=== PATIENT | female | born 1990 | race Caucasian/White ===

== ENCOUNTER 2016-03-20 15:09 | Emergency (ER) | payer BC ==
[2016-03-20 15:19] VITALS: BP 121/80
--- NOTE | 2016-03-20 16:06 | UC ---
Knee Pain HPI - HPI Summary HPI Summary: 25 yo female with left calf/posterior thigh and popliteal discomfort for 1 yr pains are short lived no swelling - History of Current Complaint Chief Complaint: UCLowerExtremity Stated Complaint: SPOT ON LEG Time Seen by Provider: 03/20/16 15:26 Hx Obtained From: Patient Hx Last Menstrual Period: 03/16/15 Onset/Duration: Gradual Onset, Lasting Weeks - 1 yr Severity Initially: Mild Severity Currently: None Location Of Injury: NA Pain Intensity: 0 Pain Scale Used: 0-10 Numeric Character: Dull Aggravating Factor(s): Nothing Alleviating Factor(s): Nothing Associated Signs And Symptoms: Negative: Swelling, Redness, Bruising, Fever, Weakness, Numbness, Tingling Able to Bear Weight: Yes - Allergies/Home Medications Allergies/Adverse Reactions: Allergies Allergy/AdvReac Type Severity Reaction Status Date / Time Sulfa Drugs AdvReac Intermediate Vomiting Verified 03/20/16 15:19 Home Medications: Home Medications Ibuprofen TAB* [Advil TAB*] 200 mg PO PRN 03/20/16 [History] Minocycline (NF) 100 mg PO BID 03/20/16 [History Confirmed 03/20/16] Multiple Vitamins W/ Minerals [Multivitamin Adults] 1 tab PO DAILY 03/20/16 [ History Confirmed 03/20/16] busPIRone TAB* [Buspar TAB *] mg PO TID 03/20/16 [History] traZODone TAB* [Desyrel TAB*] 50 mg PO BEDTIME 03/20/16 [History Confirmed 03/20] PMH/Surg Hx/FS Hx/Imm Hx Previously Healthy: Yes Endocrine History Of: Denies: Diabetes, Thyroid Disease, Hyperthyroidism, Hypothyroidism Cardiovascular History Of: Denies: Cardiac Disorders, Hypertension Respiratory History Of: Denies: COPD, Asthma GI/ History Of: Denies: Ulcer Neurological History Of: Denies: TIA, Seizures Psychological History Of: Denies: Anxiety, Depression - Surgical History Surgical History: Yes Surgery Procedure, Year, and Place: Adenoids (1995), wisdom teeth (2010) - Family History Known Family History: Positive: Other - [place] - Social History Alcohol Use: None Substance Use Type: None Smoking Status (MU): Never Smoked Tobacco Review of Systems Constitutional: Negative Skin: Negative Eyes: Negative ENT: Negative Respiratory: Negative Cardiovascular: Negative Gastrointestinal: Negative Genitourinary: Negative Motor: Negative Neurovascular: Negative Musculoskeletal: Myalgia Neurological: Negative Psychological: Negative All Other Systems Reviewed And Are Negative: Yes Physical Exam Triage Information Reviewed: Yes Appearance: Well-Appearing, No Pain Distress, Well-Nourished Vital Signs: Initial Vital Signs Temp 99.2 F 03/20/16 15:14 Pulse 83 03/20/16 15:14 Resp 16 03/20/16 15:14 BP 121/80 03/20/16 15:14 Pulse Ox 100 03/20/16 15:14 Vital Signs Reviewed: Yes Eyes: Positive: Conjunctiva Clear ENT: Positive: Hearing grossly normal. Negative: Nasal congestion, Nasal drainage, Trismus, Muffled/hoarse voice Neck: Positive: Supple Respiratory: Positive: Lungs clear, Normal breath sounds, No respiratory distress, No accessory muscle use Cardiovascular: Positive: RRR, No Murmur. Negative: Tachycardia Abdomen Description: Positive: Nontender, Soft. Negative: CVA Tenderness (R) Bowel Sounds: Positive: Present Musculoskeletal: Positive: ROM Intact, No Edema, Other: - no swelling/redness or warmth, non tender, (-) Lukas's sign Neurological: Positive: Alert Psychological Exam: Normal Skin Exam: Normal Knee Pain Course/Dx - Differential Dx/Diagnosis Provider Diagnoses: intermittent left leg pain of uncertain cause Discharge - Discharge Plan Condition: Stable Disposition: HOME Patient Education Materials: Leg Pain (ED) Referrals: Bethany Kelly MD [Primary Care Provider] - 1 Week Additional Instructions: I am unsure of the cause of your pain I find nothing to suggest a blood clot in your leg see your MD in follow up
== END 2016-03-20 16:05 | disposition home or self-care (01) ==
LOC: UCEAST 15:09
DX: M79.605 Pain in left leg (principal); Z88.2 Allergy status to sulfonamides
CPT/HCPCS: 99211; G0463